=== PATIENT | male | born 1960 | race Caucasian/White ===

== ENCOUNTER → 2017-06-12 13:40 | Outpatient (CLI) | payer OTHER, SELFPAY ==
[2017-06-12 15:38] LABS: AST(SGOT) 18 U/L (15-37); Alanine Aminotransfer ALT/SGPT 32 U/L (16-61); Albumin, Serum 3.7 g/dL (3.2-5.0); Alkaline Phosphatase 108 U/L (45-117); Bilirubin, Direct 0.09 mg/dL (0.00-0.30); Cholesterol 129 mg/dL (200); Globulin 3.3 g/dL (2.2-4.2); High Density Lipoprotein 31 mg/dL; Triglycerides 207 mg/dL; Very Low Density Lipoprotein 41 mg/dL (5-40)
== END ==
PROVIDERS: Visit Provider Internal Medicine Cardiovascular Disease
DX: E78.5 Hyperlipidemia, unspecified (principal); Z79.899 Other long term (current) drug therapy
CPT/HCPCS: 36415; 80061; 80076

== ENCOUNTER → 2017-06-19 08:04 | Outpatient (CLI) | payer OTHER, SELFPAY ==
--- NOTE | 2017-06-19 08:08 | US_ITS ---
PROCEDURES: ULTRASOUND AORTA REASON FOR EXAM: Male, 56 years old. Chronic smoker. Screening for abdominal aortic aneurysm. TECHNIQUE: Ultrasound evaluation of the aorta was performed with real-time and static cristobal-scale imaging. COMPARISON: None. FINDINGS: There is atherosclerotic plaque formation of the abdominal aorta. Aorta measures: Proximal 1.9 cm. Middle 1.9 cm. Distal 2.7 cm. Aorta measure transversely: Proximal 1.6 cm. Middle 1.9 cm. Distal 2.3 cm. Right iliac artery measures: 1.3 cm. Right iliac artery measure transversely: 0.9 cm. Left iliac artery measures: 1.0 cm. Left iliac artery measure transversely: 1.0 cm. Focal saccular aneurysmal dilatation of the distal abdominal aorta with a transverse dimension of 2.3 cm.. US/US ABD AORTA SCREEN/AAA IMPRESSION: Atherosclerotic plaques. Focal saccular dilatation of the distal portion of the abdominal aorta with a transverse dimension of 2.3 cm. Electronically Signed: Rubin Marcos MD at 14:31 EDT Tel [phone], Service support ,
== END ==
PROVIDERS: Visit Provider Nurse Practitioner Family
DX: I25.10 Atherosclerotic heart disease of native coronary artery without angina pectoris (principal); Z98.61 Coronary angioplasty status; I10 Essential (primary) hypertension; E78.00 Pure hypercholesterolemia, unspecified; Z87.891 Personal history of nicotine dependence
CPT/HCPCS: 76706

== ENCOUNTER → 2018-01-15 14:03 | Outpatient (CLI) | payer OTHER, SELFPAY ==
[2017-06-16 09:01] VITALS: BMI 27.3
[2018-01-15 15:46] LABS: AST(SGOT) 21 U/L (15-37); Alanine Aminotransfer ALT/SGPT 37 U/L (16-61); Alkaline Phosphatase 104 U/L (45-117); Bilirubin, Direct 0.11 mg/dL (0.00-0.30); Cholesterol 152 mg/dL (200); Globulin 3.3 g/dL (2.2-4.2); High Density Lipoprotein 32 mg/dL; Protein, Total 7.3 g/dL (6.4-8.2); Triglycerides 250 mg/dL; Very Low Density Lipoprotein 50 mg/dL (5-40)
== END ==
PROVIDERS: Referring Provider Internal Medicine Cardiovascular Disease; Visit Provider Internal Medicine Cardiovascular Disease
DX: E78.5 Hyperlipidemia, unspecified (principal)
CPT/HCPCS: 36415; 80061; 80076

== ENCOUNTER → 2019-01-16 15:32 | Outpatient (CLI) | payer OTHER, SELFPAY ==
[2018-01-18 13:18] VITALS: BMI 27.6
[2019-01-16 17:31] LABS: AST(SGOT) 23 U/L (15-37); Alanine Aminotransfer ALT/SGPT 54 U/L (16-61); Albumin, Serum 4.4 g/dL (3.2-5.0); Alkaline Phosphatase 94 U/L (45-117); Bilirubin, Direct 0.12 mg/dL (0.00-0.30); Cholesterol 129 mg/dL (200); Globulin 3.2 g/dL (2.2-4.2); High Density Lipoprotein 32 mg/dL; Protein, Total 7.6 g/dL (6.4-8.2); Triglycerides 161 mg/dL; Very Low Density Lipoprotein 32 mg/dL (5-40)
== END ==
PROVIDERS: Referring Provider Internal Medicine Cardiovascular Disease; Visit Provider Internal Medicine Cardiovascular Disease
DX: E78.00 Pure hypercholesterolemia, unspecified (principal); I10 Essential (primary) hypertension; I25.2 Old myocardial infarction; Z72.0 Tobacco use
CPT/HCPCS: 36415; 80061; 80076

== ENCOUNTER 2020-08-24 09:53 | Emergency (ER) | payer OTHER, SELFPAY ==
[2019-10-17 15:17] VITALS: BMI 28.0
[2020-08-24 09:54] VITALS: BP 156/93; PULSE 72; RESP 14; TEMP 36.4; O2SAT 98; BMI 27.7
--- NOTE | 2020-08-24 10:12 | RAD_ITS ---
STUDY: X-RAY - LUMBAR SPINE REASON FOR EXAM: Male, 59 years old. Back pain TECHNIQUE: 3 view(s) of the lumbar spine were obtained. COMPARISON: None FINDINGS: Normal lumbar lordosis. There is a minimal levoscoliosis of the lumbar spine. There is a normal alignment of the vertebrae. Marked degree of disc space narrowing and spondylosis at the L3-L4 level. Mild degree of disc space narrowing at the L4-L5 level. There is atherosclerotic calcification of the abdominal aorta without a demonstrated aneurysm. RAD/Lumbar Spine 2 or 3 Views IMPRESSION: Degenerative changes of the spine, as detailed above. Electronically Signed: Rubin Marcos MD at 10:39 EDT , Service support ,
--- NOTE | 2020-08-24 10:14 | ED.VIS.BACK ---
HPI History of Present Illness Chief Complaint: Back Narrative Narrative: Patient presenting for evaluation secondary to back pain. Patient has a underlying history of hypertension hyperlipidemia and heart disease. Patient also has a history that his left leg is 2-1/2 inches shorter than his right. Patient wears a custom insole. Patient states on Monday woke up and his back hurt bad enough that he felt as if he could not walk. Its left lower back pain that radiates down the posterior portion of the entirety of his left leg. Not really associated with any sort of weakness. Patient denies any trips, falls, recent injuries or increased activity. He denies any bowel or bladder incontinence fevers chills night sweats unintended weight loss or recent injections or surgeries. Patient does also endorse that in a different time course he has had some left shoulder pain that he attributes to how he sleeps on his stomach with his arms under the pillow. No numbness or weakness or radiation to the left arm. Review of systems otherwise negative. Patient states that from yesterday to today he now is able to walk around 510 steps before the pain sets in, and then he has increased pain [facility] Medical History (Updated 08/24/20 @ 11:[address] Karan Dash MD) Atherosclerotic heart disease of [place] coronary artery without angina pectoris Essential (primary) hypertension HIV positive Hyperlipidemia Nicotine dependence Non-ST elevation (NSTEMI) myocardial infarction (11/2014) Home Medications nitroglycerin 0.4 mg sublingual tablet 0.4 mg SUBLINGUAL Q5M PRN 06/13/17 [History Last Taken Unknown] bictegravir 50 mg-emtricitabine 200 mg-tenofovir alafenam 25 mg tablet PO #30 tab 01/17/19 [History Last Taken Unknown] atorvastatin 20 mg tablet 20 mg PO QDAY #90 tab 09/06/19 [Rx Last Taken Unknown] carvedilol 6.25 mg tablet 6.25 mg PO BID #180 tab 09/06/19 [Rx Last Taken Unknown] lisinopril 5 mg tablet 5 mg PO QDAY #90 tab 09/06/19 [Rx Last Taken Unknown] ticagrelor 90 mg tablet 90 mg PO BID #180 tab 09/06/19 [Rx Last Taken Unknown] aspirin 81 mg tablet,delayed release 81 mg PO DAILY #90 tab 08/04/20 [Rx Last Taken Unknown] methylprednisolone [Medrol (Kwabena)] 4 mg PO DAILY #21 tab 08/24/20 [Rx Last Taken Unknown] Allergy/AdvReac Type Severity Reaction Status Date / Time Sulfa (Sulfonamide Allergy Rash Verified 08/24/20 09:54 Antibiotics) Family History Father CVA (cerebral vascular accident) Diabetes Mother Hypertension Surgical History History of coronary artery stent placement (11/08/14) Social History Smoking Status: Current every day smoker tobacco type: cigarettes caffeine: Yes Type: coffee Number of servings: 5 what type of physical activity do you participate in: none ROS ROS ED Constitutional Constitutional ED: Reports other Details: Denies recent surgeries, or injections ; Denies chills, fever(s), sweats or weight loss Cardiovascular Cardiovascular: Denies chest pain Respiratory/Chest Respiratory/Chest: Denies dyspnea Gastrointestinal Gastrointestinal: Reports other Details: Denies Bowel Incontinence ; Denies abdominal pain Genitourinary Genitourinary ED: Reports other Details: Denies Bladder Incontinence Musculoskeletal Musculoskeletal: Reports back pain Integumentary Reports other Details: No Petechiae ; Denies rash Neurologic Neurologic: Reports other Details: Denies Numbness, or Weakness Psychiatric Psychiatric: Reports other Details: Denies history of IV Drug abuse Hematologic/Lymphatic Hematologic/Lymphatic: Denies lymphadenopathy EXAM Physical Exam Const Vital Signs: 08/24/20 09:54 08/24/20 12:00 Temperature 97.6 F L Temperature Source Temporal Pulse Rate 72 71 Respiratory Rate 14 16 Blood Pressure 156/93 H 120/91 H Blood Pressure Mean 114 Pulse Ox 98 Oxygen Delivery Method Room Air Positive well nourished and well developed General Appearance ED: well developed and NAD HEENT Reports normocephalic and head/scalp atraumatic Eyes EOMs intact bilaterally Neck supple Resp normal respiratory effort and clear to auscultation bilaterally Cardio regular rate, regular rhythm and no murmurs Bruits: other Other Details: 2+ Radial Pulses 2+ DP Pulses 2+ PT Pulses Peripheral Pulses: radial pulses present, posterior tibial pulses present and dorsalis pedis pulses present GI normal to inspection, nondistended, normoactive bowel sounds, soft to palpation and non-tender Palpation: Negative for pulsatile mass Back/Spine normal to inspection Thoracic Spine / Upper Back: Negative for thoracic spinal tenderness Lumbar Spine / Lower Back: straight leg raise negative bilaterally; Negative for lumbar spinal tenderness Extremity normal to inspection Neuro oriented x3 and no sensory deficits noted Neuro Narrative: Motor: Hip flexion Knee flexion Knee extension Dorsiflexion Plantar Flexion Extensor Hallicus longus Sensorium / Orientation: alert Sensory Exam: other Motor Exam: strength 5/5 throughout Deep Tendon Reflexes: Rt Patellar (L4): 2+, Lt Patellar (L4): 2+, Rt Ankle (S1): 2+ and Lt Ankle (S1): 2+ Deep Tendon Reflexes Back: Rt Patellar (L4): 2+, Lt Patellar (L4): 2+, Rt Ankle (S1): 2+ and Lt Ankle (S1): 2+ Plantar Reflex: Other: bilateral (No pathologic clonus) Psych mental status grossly normal Skin no rashes or lesions noted Trauma: other No petechiae MDM MDM MDM Narrative Medical decision making narrative: Patient presented secondary to signs of radicular back pain. Lumbar x-ray by my personal interpretation as well as radiology demonstrates some degenerative changes. Patient has no red flag signs or symptoms, do not feel that he requires further imaging or further work-up at this time. Patient be placed on a Medrol pack. He was recommended range of motion exercises. Patient was discharged in stable condition. Radiography Diagnostic Testing: Radiology Impression Lumbar Spine X-Ray 08/24/20 10:12 IMPRESSION: Degenerative changes of the spine, as detailed above. Electronically Signed: Rubin Marcos MD at 10:39 EDT , Service support , Discharge Plan Triage Chief Complaint: Back ED Provider: Karan Dash Dx/Rx/DC Orders Clinical Impression: Acute lumbar radiculopathy Instructions: ED Sciatica Prescriptions: New methylprednisolone [Medrol (Kwabena)] 4 mg tablets,dose pack 4 mg PO DAILY Qty: 21 RF: 0 No Action nitroglycerin [Nitrostat] 0.4 mg tablet, sublingual 0.4 mg SUBLINGUAL Q5M PRNRF: 0 wmtmrzyul-thohcudn-xpyyzxd ala 50-200-25 mg tablet PO Qty: 30 RF: 0 lisinopril 5 mg tablet 5 mg PO QDAY Qty: 90 RF: 3 carvedilol 6.25 mg tablet 6.25 mg PO BID Qty: 180 RF: 3 atorvastatin 20 mg tablet 20 mg PO QDAY Qty: 90 RF: 3 ticagrelor 90 mg tablet 90 mg PO BID Qty: 180 RF: 3 aspirin 81 mg tablet,delayed release (DR/EC) 81 mg PO DAILY Qty: 90 RF: 5 Primary Care Provider: Tiera Hammer Referrals: Tiera Hammer MD [Primary Care Provider] - Disposition Disposition: Home, Self Care Discharge Date/Time: 08/24/20 12:01
[2020-08-24 12:00] VITALS: BP 120/91; PULSE 71; RESP 16
== END 2020-08-24 12:01 | disposition home or self-care (01) ==
PROVIDERS: Emergency Provider Emergency Medicine
DX: M54.16 Radiculopathy, lumbar region (principal); M25.512 Pain in left shoulder; Z21 Asymptomatic human immunodeficiency virus [HIV] infection status; I25.10 Atherosclerotic heart disease of native coronary artery without angina pectoris; I10 Essential (primary) hypertension; E78.5 Hyperlipidemia, unspecified; F17.210 Nicotine dependence, cigarettes, uncomplicated; Z79.82 Long term (current) use of aspirin; Z79.02 Long term (current) use of antithrombotics/antiplatelets; Z79.52 Long term (current) use of systemic steroids; Z79.899 Other long term (current) drug therapy; I25.2 Old myocardial infarction; Z95.5 Presence of coronary angioplasty implant and graft
CPT/HCPCS: 72100; 99282

== ENCOUNTER 2020-10-01 17:00 | Outpatient (RCR) | payer OTHER, SELFPAY ==
--- NOTE | 2020-09-10 17:57 | HP.PTEVAL_ITS ---
Patient's Visit Information TEREAS AREVALO is a 59 year old M referred to Physical Therapy by Dr. Cyndi Saavedra MD with a diagnosis of BACK PAIN. Date of Evaluation: 09/10/20 Physical Therapist: Terell Desouza PT, Cert MDT, OCS - Visit Plan Frequency: 2x /Week Duration: 4 Weeks - Subjective This 59 y/o male presents to physical therapy with back pain and leg pain . Patient has had LBP ~ 3weeks ago. Patient went to ER tried prednisone pack didn't help and x-rays -. Patient pain located lumbar -buttock to hamstrings /tigh occasional calf. Aggravating factors walking, standing bending, lifting . Alleviating factors sitting . Patient pain affects sleeping. Coughing/sneezing -. Bowel/bladder-. Denies paresthesia/tingling. Patient has seen chiropractor and had epidural injections which didn't help. Patient had insidious onset acute back pain waking up in morning. Patient severity of pain affects QOL ,function and ADLS'. Patient pain affects job demands. Patient goal decrease affects pain. 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 VOCATION: Advertising Copy Writer. SOCAIL: - Objective POSTURE: mild forward posture. NEURO: denies paresthesia/tingling ,reflexes L3-4,L5-S1 ,L4-5 1/3. SYMMTRIES: align, pelvis leg 3 length discrepancy left. PALPATION: unremarkable. GAIT: antalgic gait forward posture. MMT: quads/hams 4/5,hip 4-/5,ankle 5/5 GTE 4/5. LUMBAR ROM: WFL ,extension mod loss, side glides min loss. FLEXABLITY: hams min tight - Special Tests L/S Slump test left side: Negative L/S Slump test right side: Negative L/S Left Straight Leg Raise: Negative L/S Right Straight Leg Raise: Negative Lumbar Standing: Flexion - Mechanical Response: No effect Lumbar Standing: Flexion - Symptoms During Testing: No effect Lumbar Standing: Flexion - Symptoms After Testing: No effect Lumbar Standing: Extension - Mechanical Response: No effect Lumbar Standing: Extension - Symptoms During Testing: Increases Lumbar Standing: Extension - Symptoms After Testing: No worse Comments:: left lumbar Lumbar Standing: Right Side Glides - Mechanical Response: No effect Lumbar Standing: Right Side [place] - Symptoms During Testing: No effect Lumbar Standing: Right Side [place] - Symptoms After Testing: No effect Lumbar Standing: Left Side [place] - Mechanical Response: No effect Lumbar Standing: Left Side [place] - Symptoms During Testing: No effect Lumbar Standing: Left Side [place] - Symptoms After Testing: No effect Lumbar Lying: Flexion - Mechanical Response: No effect Lumbar Lying: Flexion - Symptoms During Testing: Increases Lumbar Lying: Flexion - Symptoms After Testing: Worse Lumbar Lying: Extension - Mechanical Response: No effect Lumbar Lying: Extension - Symptoms During Testing: Increases Lumbar Lying: Extension - Symptoms After Testing: No worse Comments:: left lumbar - Balance/Special Test Scores Oswestry Low Back Score: 37 - Goals Goal 1:: Patient to be I with HEP Goal Time Frame: 4-6 Weeks Goal 2:: Patient decrease pain lumbar and radicular symptoms by 50% or > to improve function and QOL Goal Time Frame: 4-6 Weeks Goal 3:: Patient to improve lumbar ROM for function of recovery Goal Time Frame: 4-6 Weeks Goal 4:: Patient to improve posture/body mechanics for ADLS Goal Time Frame: 4-6 Weeks Goal 5:: Patient to improve back owestry score by 5 points or > to improve fun ction. Goal Time Frame: 4-6 Weeks - Rehabilitation Potential Physical Therapy Diagnosis: This patient has lumbar pain with possible disc involvement with derangement vs HNP with pain with test movements ,gait/standing function impairs ADLS and job demands and decrease function of recovery thus will benefit from skilled PT Rehabilitation Potential: Good - Anticipated Interventions Patient/Client Instruction: Educate patient on: Condition, Plan of Care For the Purpose of:: To decrease pain, To increase ROM, To improve muscle performance and motor function, To improve ability to perform ADL's, To increase tolerance to activity/condition/position, To improve ability of physical actions for home/community/work/leisure, To improve health of tissue, To improve balance, To improve safety with gait, To reduce risk of recurrence, To improve health and function, To prevent re-injury, To improve ability to perform tasks related to life management Therapeutic Exercise to Include: Strength training, Body mechanics, Postural training, Active ROM, Dynamic Lumbar Stabilization, Sandra Exercises For the Purpose of:: To decrease pain, To increase ROM, To improve muscle performance and motor function, To improve ability to perform ADL's, To increase tolerance to activity/condition/position, To improve performance and independence with ADL's, To improve ability of physical actions for home/co mmunity/work/leisure, To improve gait and locomotor functions, To improve health of tissue, To decrease soft tissue restriction, To improve safety with gait, To reduce risk of recurrence, To improve self management, To improve ability to perform tasks related to life management TENS: Yes IF ES: Yes Cryotherapy (ice pack, ice massage): Yes Thermo therapy (hot pack): Yes Ultrasound (thermal/non thermal): Yes Pelvic traction supine: Yes For the Purpose of:: To decrease pain, To improve nutrient delivery to tissue, To increase oxygenation perfusion, To improve health of tissue, To decrease soft tissue restriction, To increase flexibility/ROM, To reduce risk of recurrence, To improve ability to perform tasks related to life management Thank you for the opportunity to evaluate your patient. For Medicare and Medicare HMO plans, please review the plan of care and approve it. It will need to be FAXED BACK to us at [phone] for Medicare purposes. For Medicare only, by signing this I certify the plan of care. Please let me know if there are questions or concerns regarding this plan of care. Physician Signature: Date:
--- NOTE | 2021-02-22 12:05 | HP.PT.NRP ---
ROSENDA AREVALO was seen in my office for initial evaluation on 09/10/20. The following Plan of Care was established for this patient: Initial Frequency: 2x /Week Initial Duration: 4 Weeks Patient/Client Instruction: Educate patient on: Condition, Plan of Care For the Purpose of:: To decrease pain, To increase ROM, To improve muscle performance and motor function, To improve ability to perform ADL's, To increase tolerance to activity/condition/position, To improve ability of physical actions for home/community/work/leisure, To improve health of tissue, To improve balance, To improve safety with gait, To reduce risk of recurrence, To improve health and function, To prevent re-injury, To improve ability to perform tasks related to life management Therapeutic Exercise to Include: Strength training, Body mechanics, Postural training, Active ROM, Dynamic Lumbar Stabilization, Maru Exercises For the Purpose of:: To decrease pain, To increase ROM, To improve muscle performance and motor function, To improve ability to perform ADL's, To increase tolerance to activity/condition/position, To improve performance and independence with ADL's, To improve ability of physical actions for home/community/work/leisure, To improve gait and locomotor functions, To improve health of tissue, To decrease soft tissue restriction, To improve safety with gait, To reduce risk of recurrence, To improve self management, To improve ability to perform tasks related to life management TENS: Yes IF ES: Yes Cryotherapy (ice pack, ice massage): Yes Thermo therapy (hot pack): Yes Ultrasound (thermal/non thermal): Yes Pelvic traction supine: Yes For the Purpose of:: To decrease pain, To improve nutrient delivery to tissue, To increase oxygenation perfusion, To improve health of tissue, To decrease soft tissue restriction, To increase flexibility/ROM, To reduce risk of recurrence, To improve ability to perform tasks related to life management This patient was last seen in our office . Pertinent comments regarding their Physical therapy will appear below: Patient seen for PT for back pain for maru ex's, progression of DLS and modalties with decrease lumbar pain for golf. At this point I will be discontinuing this patient from physical therapy. I would be happy to see this patient again in the future if found appropriate by the physician. Thank you! Terell Desouza, PT, Cert MDT, OCS Balance/Gait/Functional tests - Balance/Special Test Scores Oswestry Low Back Score: 5
== END 2020-10-01 19:00 | disposition home or self-care (01) ==
LOC: PT 17:00
PROVIDERS: Referring Provider Anesthesiology Pain Medicine; Visit Provider Anesthesiology Pain Medicine
DX: M54.9 Dorsalgia, unspecified (principal); M79.606 Pain in leg, unspecified
CPT/HCPCS: 97014; 97035; 97110; 97162; G0283

== ENCOUNTER → 2020-10-08 16:25 | Outpatient (CLI) | payer OTHER, SELFPAY ==
[2020-10-08 17:27] LABS: AST(SGOT) 18 U/L (15-37); Alanine Aminotransfer ALT/SGPT 48 U/L (16-61); Alkaline Phosphatase 97 U/L (45-117); Cholesterol 122 mg/dL (200); Globulin 3.1 g/dL (2.2-4.2); High Density Lipoprotein 36 mg/dL; Protein, Total 7.1 g/dL (6.4-8.2); Triglycerides 111 mg/dL; Very Low Density Lipoprotein 22 mg/dL (5-40)
== END ==
PROVIDERS: Referring Provider Internal Medicine Cardiovascular Disease; Visit Provider Internal Medicine Cardiovascular Disease
DX: E78.00 Pure hypercholesterolemia, unspecified (principal)
CPT/HCPCS: 36415; 80061; 80076

== ENCOUNTER → 2020-11-04 06:32 | Outpatient (CLI) | payer OTHER, SELFPAY ==
--- NOTE | 2020-11-04 17:58 | STRESSREP ---
Stress Test Report Exercise myocardial perfusion stress test. 59-year-old male with a history of coronary artery disease. Stress protocol: Resting EKG demonstrates normal sinus rhythm with a rate of 77 bpm normal intervals are noted resting blood pressure is 130/78 mmHg. The patient exercised according to regular Vikas protocol for total duration of 6 minutes. Patient completed stage II of the Vikas protocol the maximum heart rate attained was 122 bpm which was 76% of max infected heart rate the maximum workload was 7 metabolic equivalents. At rest there were no ST or T wave changes noted to suggest ischemia and at peak exercise upsloping ST changes were noted with did not meet the criteria for ischemia. No clinical angina was noted. The resting blood pressure is 130/78 with a final blood pressure 158/80 mmHg. Myocardial perfusion protocol. 11.5 mCi of technetium 99m sestamibi was injected at rest. The patient exercised according to regular Vikas protocol for 6 minutes and at peak exercise 33.9 mCi of technetium 99m sestamibi was injected stress images were obtained stress and rest images were reconstructed and compared in the short axis vertical long horizontal long axis. Gated images were also obtained per Perfusion SPECT analysis: Review of the stress images demonstrate normal uptake of tracer noted in all areas of the myocardium. The resting images similarly demonstrate normal uptake of tracer noted in all areas of the myocardium. No areas of reversibility are noted suggest ischemia and no previous infarct is noted. Gated SPECT analysis: The gated ejection fraction is 63%. Conclusion: Normal exercise myocardial perfusion stress test at a moderate workload. Preserved ejection fraction.
== END ==
PROVIDERS: Visit Provider Nurse Practitioner Gerontology
DX: I25.10 Atherosclerotic heart disease of native coronary artery without angina pectoris (principal); Z95.5 Presence of coronary angioplasty implant and graft
CPT/HCPCS: 78452; 93017; A9500

== ENCOUNTER → 2021-10-29 | Outpatient (CLI) | payer OTHER, SELFPAY ==
--- NOTE | 2021-10-29 09:55 | ECHOCS_ITS ---
Version 2 Reason For Study: CAD/ASHD Procedure This was a 2D Doppler, Color Flow transthoracic echocardiogram. The study was technically difficult. Contrast injection was performed. Exam performed in department. Left Ventricle Normal LV size. Left ventricular systolic function is normal. The estimated ejection fraction is 55 %. Stage 1 diastolic dysfunction. No regional wall motion abnormalities noted. Right Ventricle Normal RV size. Normal systolic function. Atria Normal left atrium. Normal right atrium. Mitral Valve Normal mitral valve. Tricuspid Valve Normal tricuspid valve. Aortic Valve Normal aortic valve. Pulmonic Valve Normal pulmonic valve. Great Vessels Normal aortic root. The pulmonary artery is normal size. Pericardium/Pleural No pericardial effusion. Medication 20 gauge I.V. with prn adaptor inserted into right arm. Diluted definity 1ml given slow IV push to enhance endocardial definition. MMode/2D Measurements & Calculations LVIDd: 4.8 cm IVSd: 0.98 cm Ao root diam: 3.3 cm LVIDs: 3.3 cm LVPWd: 1.2 cm LA dimension: 3.3 cm RVDd: 3.3 cm FS: 31.9 % LAV(MOD-bp): 38.3 ml LA A4 area: 14.2 cm2 RA A4 area: 13.9 cm2 LAV(MOD-bp) Indexed: 18.9 ml/m2 LAV(MOD-sp2): 38.3 ml LAV(MOD-sp4): 34.0 ml Time Measurements MV dec time: 0.22 sec Doppler Measurements & Calculations MV E max marcus: 52.8 cm/sec Lat Peak E' Marcus: 7.1 cm/sec Med Peak E' Marcus: 7.3 cm/sec MV A max marcus: 71.8 cm/sec E/E' lat: 7.4 E/E' med: 7.3 MV E/A: 0.74 MV V2 max: 77.2 cm/sec MV P1/2t max marcus: 64.4 cm/sec Ao V2 max: 85.3 cm/sec MV max P.4 mmHg MV P1/2t: 76.6 msec Ao max P.9 mmHg MV V2 mean: 50.6 cm/sec MV dec slope: 246.2 cm/sec2 MV mean P.1 mmHg MV V2 VTI: 19.9 cm MVA(P1/2t): 2.9 cm2 LV V1 max: 78.0 cm/sec PA V2 max: 104.4 cm/sec LV V1 max P.4 mmHg ECHO/Echo Complete W/ Contrast Interpretation Summary Normal LV size. Left ventricular systolic function is normal. The estimated ejection fraction is 55 %. Stage 1 diastolic dysfunction. Contrast injection was performed. Ordering Physician: Maxime Tavarez Referring Physician: Tiera Hammer Performed By: Randy Riojas RCS
== END | disposition home or self-care (01) ==
LOC: CVS 09:55
PROVIDERS: Referring Provider Internal Medicine Cardiovascular Disease; Visit Provider Internal Medicine Cardiovascular Disease
DX: I25.10 Atherosclerotic heart disease of native coronary artery without angina pectoris (principal); Z95.5 Presence of coronary angioplasty implant and graft
CPT/HCPCS: 93306; Q9957; A4216; C8929

== ENCOUNTER → 2023-08-31 | Outpatient (CLI) | payer OTHER, SELFPAY ==
--- NOTE | 2023-08-31 09:53 | CDU_ITS ---
Reason For Study: Carotid bruit Rt. Velocities/BP Lt. Velocities/BP Prox CCA 67.4/19.2 cm/sec. Prox CCA 66.9/13.1 cm/sec. Mid CCA 76.8/23.9 cm/sec. Mid CCA 48.3/8.7 cm/sec. Dist CCA 46.6/17.3 cm/sec. Dist CCA 36.2/5.4 cm/sec. Prox ICA 171.9/62.1 cm/sec. ICA, No flow noted. Mid ICA 69.2/24.9 cm/sec. Prox ECA 138.1/19.5 cm/sec. Dist ICA 94.6/35.7 cm/sec. Lt. Vert. 91.1/34.5 cm/sec. Rt. ICA/CCA = 2.24. Prox ECA 156.5/20.4 cm/sec. Right Extracranial There is homogeneous, smooth atherosclerotic plaque noted in the right common carotid artery. There is heterogeneous, irregular atherosclerotic plaque noted in the right internal carotid artery. There is heterogeneous, irregular atherosclerotic plaque noted in the right external carotid artery. Retrograde flow noted in the right vertebral artery. Left Extracranial There is homogeneous, smooth atherosclerotic plaque noted in the left common carotid artery. The left internal carotid artery is occluded. There is heterogeneous, irregular atherosclerotic plaque noted in the left external carotid artery. Antegrade flow is noted in the left vertebral artery. Procedure Carotid Duplex [id number]. This is a Carotid Duplex examination using B-mode, color flow and specral Doppler. Preliminary report given to Layla RICCI. Exam performed in department. VL/Carotid Duplex Ultrasound Interpretation Summary Moderate (50-69%) stenosis right extracranial internal carotid. 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 The Right vertebral flow is retrograde. The Left vertebral is patent and antegrade. Ordering Physician: Kobe Ayala Referring Physician: No Primary Care Physician Performed By: Jennifer Talavera RVT
== END | disposition home or self-care (01) ==
PROVIDERS: Referring Provider Surgery Trauma Surgery; Visit Provider Surgery Trauma Surgery
DX: R09.89 Other specified symptoms and signs involving the circulatory and respiratory systems (principal)
CPT/HCPCS: 93880

== ENCOUNTER → 2024-02-22 | Outpatient (CLI) | payer MEDICARE, SELFPAY ==
--- NOTE | 2024-02-22 10:01 | CDU_ITS ---
Reason For Study: HX Lt ICA Occlusion Rt. Velocities/BP Lt. Velocities/BP Prox CCA 56.7/20.4 cm/sec. Prox CCA 90.7/17.1 cm/sec. Mid CCA 51.2/14.9 cm/sec. Mid CCA 60.4/15.0 cm/sec. Dist CCA 63.3/19.3 cm/sec. Dist CCA 38.3/13.8 cm/sec. Prox ICA 154.7/59.1 cm/sec. Known Lt ICA Occlusion. Mid ICA 77.8/24.8 cm/sec. Prox ECA 153.4/21.3 cm/sec. Dist ICA 92.4/41.3 cm/sec. Lt. Vert. 88.3/30.6 cm/sec. Rt. ICA/CCA = 3.0. Prox ECA 130.3/14.8 cm/sec. Rt. Vert. Retrograde flow noted cm/sec. Right Extracranial There is heterogeneous, irregular atherosclerotic plaque noted in the right common carotid artery. There is heterogeneous, irregular atherosclerotic plaque noted in the right internal carotid artery. There is heterogeneous, irregular atherosclerotic plaque noted in the right external carotid artery. Retrograde flow noted in Rt Vert A. Left Extracranial There is homogeneous, smooth atherosclerotic plaque noted in the left common carotid artery. There is heterogeneous, irregular atherosclerotic plaque noted in the left internal carotid artery. The left internal carotid artery is occluded. There is heterogeneous, irregular atherosclerotic plaque noted in the left external carotid artery. Antegrade flow is noted in the left vertebral artery. Procedure Carotid Duplex [id number]. This is a Carotid Duplex examination using B-mode, color flow and specral Doppler. The exam was diagnostic. Exam performed in department. VL/Carotid Duplex Ultrasound Interpretation Summary Moderate (50-69%) stenosis right extracranial internal carotid. 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 The Right vertebral flow is retrograde. The Left vertebral is patent and antegrade. Ordering Physician: Toyin Lindsey Referring Physician: N/A Performed By: Torres Tuttle RVT
== END | disposition home or self-care (01) ==
PROVIDERS: Referring Provider Physician Assistant; Visit Provider Physician Assistant
DX: I65.23 Occlusion and stenosis of bilateral carotid arteries (principal)

== ENCOUNTER → 2024-08-28 | Outpatient (CLI) | payer MEDICARE, SELFPAY ==
--- NOTE | 2024-08-28 10:57 | CDU_ITS ---
Reason For Study Reason For Study: LT ICA Occlusion / RT ICA Stenosis Rt. Velocities/BP Lt. Velocities/BP Prox CCA 65.0/24.4 cm/sec. Dist CCA 35.5/9.2 cm/sec. Mid CCA 73.6/19.5 cm/sec. Mid CCA 45.5/9.2 cm/sec. Dist CCA 74.8/18.3 cm/sec. Prox CCA 125.3/19.4 cm/sec. Prox ICA 191.5/77.5 cm/sec. Rt ICA appears occluded. Mid ICA 120.4/43.7 cm/sec. Prox ECA 129.6/19.8 cm/sec. Dist ICA 103.9/45.5 cm/sec. Lt. Vert. 70.5/24.8 cm/sec. Rt. ICA/CCA = 2.6. Prox ECA 134.5/20.5 cm/sec. Retrograde flow noted in Rt Vertebral Artery. Right Extracranial There is heterogeneous, irregular atherosclerotic plaque noted in the right common carotid artery. There is heterogeneous, irregular atherosclerotic plaque noted in the right internal carotid artery. There is heterogeneous, irregular atherosclerotic plaque noted in the right external carotid artery. Rt Vert A Retrograde Flow. Left Extracranial There is heterogeneous, smooth atherosclerotic plaque noted in the left common carotid artery. There is heterogeneous, irregular atherosclerotic plaque noted in the left internal carotid artery. Known occlusion of Lt ICA noted. There is heterogeneous, irregular atherosclerotic plaque noted in the left external carotid artery. Antegrade flow is noted in the left vertebral artery. Procedure Carotid Duplex [id number]. This is a Carotid Duplex examination using B-mode, color flow and specral Doppler. The exam was diagnostic. Exam performed in department. VL/Carotid Duplex Ultrasound Interpretation Summary Moderate (50-69%) stenosis right extracranial internal carotid. 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 The Right vertebral flow is retrograde. The Left vertebral is patent and antegrade. Ordering Physician: Toyin Lindsey Referring Physician: Johnson Smiley M.D. Performed By: Torres Tuttle RVT
== END | disposition home or self-care (01) ==
LOC: CVS 10:54
PROVIDERS: PCP Internal Medicine; Referring Provider Physician Assistant; Visit Provider Physician Assistant
DX: I65.22 Occlusion and stenosis of left carotid artery (principal)
CPT/HCPCS: 93880